=== PATIENT | male | born 1960 | race African-American/Black ===

== ENCOUNTER 2021-04-30 12:14 | Emergency (ER) | payer MEDICAID ==
[~2021-04-30] VITALS: Ht 177.8 cm; Wt 82.0 kg
[2021-04-30 12:32] VITALS: BP 137/97
== END 2021-04-30 13:22 | disposition home or self-care (01) ==
LOC: ER 12:14
DX: Z13.9 Encounter for screening, unspecified (principal); R33.9 Retention of urine, unspecified; Z98.890 Other specified postprocedural states
CPT/HCPCS: 99281

== ENCOUNTER 2021-06-29 06:54 | Emergency (ER) | payer OTHER ==
[~2021-06-29] VITALS: Ht 175.3 cm; Wt 90.0 kg
[~2021-06-29 06:54] MED LIST: APIX5TAB PO; LEVO500T89 MT; TAMS-11 PO
[2021-06-29 07:00] VITALS: BP 135/77
[2021-06-29] MEDS ORDERED: CIPR-263 MT (08:21)
== END 2021-06-29 08:47 | disposition home or self-care (01) ==
LOC: ER 07:10
DX: N39.0 Urinary tract infection, site not specified (principal); N40.0 Benign prostatic hyperplasia without lower urinary tract symptoms; F15.10 Other stimulant abuse, uncomplicated; F14.10 Cocaine abuse, uncomplicated; F11.10 Opioid abuse, uncomplicated; N28.9 Disorder of kidney and ureter, unspecified; Z86.718 Personal history of other venous thrombosis and embolism; Z79.01 Long term (current) use of anticoagulants; Z86.711 Personal history of pulmonary embolism
CPT/HCPCS: 99283

== ENCOUNTER 2021-12-20 22:40 | Emergency (ER) | payer MEDICAID, OTHER ==
[~2021-12-20] VITALS: Ht 175.3 cm; Wt 86.0 kg
[~2021-12-20 22:40] MED LIST changes: +CIPR-263 MT; -LEVO500T89 MT; +LEVO500T90 MT
[2021-12-20] MEDS ORDERED: HYDR-4001 MT (23:39)
[2021-12-20] MEDS ORDERED: HYDROCODONE/ACETAMINOPHEN 5/325MG TABLET PO ONE (23:45)
[2021-12-20 23:57] VITALS: BP 127/65
== END 2021-12-20 23:58 | disposition home or self-care (01) ==
LOC: ER 22:40
DX: M54.50 Low back pain, unspecified (principal); F14.10 Cocaine abuse, uncomplicated
CPT/HCPCS: 99283

== ENCOUNTER 2022-06-03 11:29 | Emergency (ER) | payer MEDICAID ==
[~2022-06-03] VITALS: Ht 175.3 cm; Wt 80.0 kg
[~2022-06-03 11:29] MED LIST changes: +HYDR-4001 MT; +LEVO-65 MT; -LEVO500T90 MT
[2022-06-03 11:34] VITALS: BP 126/70
== END 2022-06-03 13:34 | disposition home or self-care (01) ==
LOC: ER 11:56
DX: R68.84 Jaw pain (principal); Z53.21 Procedure and treatment not carried out due to patient leaving prior to being seen by health care provider
CPT/HCPCS: 99281